=== PATIENT | female | born 1935 | race Caucasian/White ===

== ENCOUNTER 2022-01-30 10:53 | Outpatient (RCR) | payer MEDICARE, BC, SELFPAY ==
--- OUTSIDE RECORDS SUMMARY | 2022-01-18 14:42 | XMS_ITS | Continuity of Care Document ---
:1935 Author Care Team Providers Name Role Phone [facility] Primary Care Physician MD David Attending Physician Unavailable Allergies, Adverse Reactions, Alerts Allergen Type Severity Reaction Last Updated Verified Status Acetaminophen Allergy Mild rash, March Yes Active headache 2017 Indomethacin Allergy Mild headache, March Yes Active rash 2017 Morphine Allergy Moderate Chest pain March Yes Active 2017 Penicillin v Allergy Mild HIVES March Yes Active 2017 Propoxyphene Allergy Mild rash, March Yes Active headache 2017 Sulfa drugs Allergy Mild HIVES March Yes Active 2017 Social History Smoking Status Status Start Date End Date Date of Observat ion Ex-smoker (finding) October 17, 2021 3:53pm Observation Status Observation Response Date of Response History provided by Patient January 25, 2018 2:55p m Where do you live? Own home/apt January 25, 2018 2:55p m With whom do you live? Alone March 07, 2015 7:17pm Comment on who patient lives [employer] Jan 2:55pm with Additional Data Assigned Sex Female Problems Active Problems Medical Problem Onset Date Status Chest pain Active Temporal arteritis Active Right temporal headache Active Abdominal hernia Active Pyelonephritis Active RUQ abdominal wall herna Active Hypertension Active Obesity Active History of polycythemia vera Active Anemia Active Leukopenia Active Weakness Active Prerenal acute renal failure Active Hypotension Active Hypokalemia Active Medications Medication Status Dose Units Route Directions Qty Days Start End Ins tructions Date Date Acetaminophen Active 650 MG PO Every 4 100 NO MORE THAN (Tylenol) 325 Hours as 400 0 MG/DAY Mg TAB needed Acetaminophen Active 1-2 CAP PO Every 4 30 ON HOLD /Butalbital/C Hours as MAX 6/DAY affeine needed (Fioricet 50-325-40 Mg) CAP Aspirin Active 81 MG PO Daily Atorvastatin Active 40 MG PO Bedtime 90 Calcium Diphenhydrami Active 25 MG PO Every 6 ne Hcl Hours as (Benadryl) 25 needed Mg TAB Folic Acid Active 1 MG PO Daily 30 Furosemide Active 40 MG PO As Directed 30 (Lasix) 20 Mg TAB Hydroxyurea Active 500 MG PO As Directed 120 (Hydrea) 500 Mg CAP Lisinopril Active 20 MG PO Daily 24 November ON HOLD 2021 12:05pm Lorazepam Active 0.5 MG PO Three Times ON HOLD A Day as PRN needed Meclizine Hcl Active 12.5 MG PO Every 8 30 Hours as needed Metoprolol Active 25 MG PO Twice A Day 180 Tartrate Multivitamins Active 1 TAB PO Daily 100 (Multivitamin /Minerals) TAB Nitroglycerin Active 0.4 MG SL Every 5 25 PRN CHEST (Nitrostat) Minutes as HUONG N 0.4 Mg SUB needed Omeprazole Active 20 MG PO Daily@February (Prilosec) 20 , Mg CAP 2014 7:48am Ondansetron Active 4 MG PO Every October ON HO LD Hcl Hours as , (Ondansetron needed 2021 Odt) 4 Mg TAB 12:05pm Oxybutynin Active 5 MG PO Twice A Day 60 Chloride as needed Oxycodone Hcl Active 2.5 MG PO Every 4 30 Hours as needed Triamcinolone Active 1 SUZANNE TOP Twice A Day 15 Acetonide as needed (Triamcinolon e Acetonide (Cream)) 0.1 % CRE Vitamin E Active 800 UNIT PO Daily 100 ON HOLD Acetaminophen Discontin 1 TAB PO Every October /Hydrocodone ued Hours as , Bitart needed for 2021 (Hydrocodone- 12:05p Acetaminophen m ) 5 Mg/325 Mg TAB Acyclovir Discontin 400 MG PO Twice A Day October Instructed Man that no need for [place] to take anymore now ued , that counts ar e back up and patient isin't neutropenic 2021 2021 4:21pm 9:01am Acyclovir Discontin 400 MG PO Twice A Day October start 11/02/21 ued , , 2021 2021 11:51am 4:21pm Amlodipine Discontin 10 MG PO Daily 23 February Besylate ued , (Norvasc) 10 2019 Mg TAB 10:42a m Amlodipine Discontin 10 MG PO Daily January Besylate ued 2017 11:24a m Amlodipine Discontin 5 MG PO Daily January Besylate ued 2017 2:42pm Aspirin Discontin 325 MG PO Daily (Aspirin 325 ued y Mg) 325 Mg 2017 9:43am Aspirin Discontin 81 MG PO Daily October ued 2014 6:50pm Aspirin Discontin 325 MG PO Daily October (Aspirin 325 ued , Mg) 325 Mg 2014 TAB 4:45pm Butalbital-Ac Discontin 1 TAB PO Q4h Prn Juluar etaminophen-C ued y , aff2018 (Acetaminophe 11:38a n/Butalbital/ m ) TAB Cefadroxil Discontin 1 GM PO Twice A Day 14 January m ued 2017, 11:24am 2017 10:02a m Chlorphenir/H Discontin 5 ML PO Q12h Prn October ydrocodone ued , Polistirex 2014 (Tussionex) 8 4:44pm Mg/10 Mg SUSP Clopidogrel Discontin 75 MG PO Daily 24 November Bisulfate ued , (Plavix) 75 2021 Mg TAB 12:05p m Cyanocobalami Discontin 1000 CR OR Februa n (Vitamin ued ry B12) 1,000 Cr , TAB 2016 3:16pm Diclofenac Discontin 50 MG PO Twice A Day October Potassium ued , (Cataflam) 50 2014 Mg TAB 4:44pm Diclofenac Discontin 75 MG PO Twice A Day January Sodium ued 2015 1:08pm Diclofenac Discontin 75 MG PO Twice Daily t Sodium ued With Meals , as needed 2014 7:48am Fish Oil Discontin 1000 MG PO Daily 100 Juluar ued y 2018 11:38a m Fish Oil Discontin 1000 MG PO Daily October ued 2017 3:09pm Fluconazole Discontin 200 MG PO Daily October star t 11/02/21 ued , , 2021 2021 11:51am 9:25am Hydrocodone-A Discontin 1-2 TAB PO Every 4 20 Decembe November cetaminophen ued Hours as r , , (Lorcet 5-325 needed 2014 2015 Mg) 1 Tab TAB 11:25am 12:14p m Hydroxyurea Discontin 500 MG PO As Directed October ON HOLD (Hydrea) 500 ued , , Take 2 capsules Friday through Friday and one capsule Mg CAP 2021/. 12:05pm 9:04am Hydroxyurea Discontin 500 MG PO As Directed July Ap ril Take 2 capsules Friday through Friday and one capsule (Hydrea) 500 ued , /Friday. Mg CAP 2021 2021 1:56pm 12:05p m Hydroxyurea Discontin 1000 MG PO Every 48 Januar ALTERNATE (Hydrea) 500 ued Hours y WITH 50 0 MG Mg CAP 2021 1:56pm Hydroxyurea Discontin 500 MG PO Every 48 60 Decemb ued Hours er 2019 10:34a m Hydroxyurea Discontin 500 MG PO Daily December ued 2015 3:35pm Levofloxacin Discontin 250 MG PO Daily OctoberNovember 28 (Levaquin) ued , 4th, 250 Mg TAB 2021 2021 11:51am 9:01am Lidocaine Hcl Discontin 5 ML PO Every 4-6 Maria Eugenia (Lidocaine ued Hours as , Hcl needed 2017 (Viscous)) 2 11:24a % SOLN m Lidocaine Hcl Discontin 5 ML TOP Three Times 100 Au inez (Lidocaine ued A Day , Hcl 2014 (Viscous)) 2 7:05am % SOLN Lisinopril Discontin 20 MG PO Daily January ued , 2018 11:06am 12:05p m Lisinopril Discontin 40 MG PO Daily January ued 2017 11:24a m Lisinopril Discontin 20 MG PO Daily October ued 2014 4:44pm Meclizine Hcl Discontin 25 MG PO Three Times Ap ril ued A Day as , needed for 2014 6:50pm Meclizine Hcl Discontin 25 MG PO Daily October ued 2014 4:45pm Ondansetron Discontin 4 MG PO Every 6 30 Decembe October Hcl ued Hours as r , , (Ondansetron needed 2014 2021 Odt) 4 Mg TAB 11:25am 12:05p m Sumatriptan Discontin 25 MG PO As Needed Juluar ONE TAB AT ONSET OF HEADACHE, MAY REPEAT Q2H PRN, MAX 200 Succinate ued as needed y 9th, MG/24 HRS for 2019 Headache 11:38a m Relevant Diagnostic Tests and/or Laboratory Data Laboratory Results Test Date/Time Result Interpretation Reference Result Comment Performing Range Site White Blood December 26, 12.09 5.00-10.00 [facility] Lab Count [address] [facility] 11:18am [place] [address] Red Blood December 26, 3.80 3.90-5.03 [facility] Count [address] [facility] 11:18am [place] [address] Hemoglobin December 26, 13.8 12.0-15.5 [facility] [address] [facility] 11:18am [place] [address] Hematocrit December 26, 42.8 34.9-44.5 [facility] [address] [facility] 11:18am [place] [address] Mean December 26, 113 82-98 [facility] Corpuscular 2021 [address] [facility] Volume 11:18am [place] [address] Mean December 26, 36 27-34 [facility] Corpuscular 2021 [address] [facility] Hemoglobin 11:18am [facility] [place] [address] Mean December 26, 32 32-36 [facility] Corpuscular 2021 [address] [facility] Hemoglobin 11:18am [facility] [place] [address] Concent Platelet December 26, 435 150-450 [facility] Count [address] [facility] 11:18am [place] [address] RDW December 26, 18.2 11.5-15.3 [facility] Coefficient 2021 [address] [facility] of Variation 11:18am [place] [address] Neutrophils December 26, 84.9 50.0-70.0 [facility] (%) (Auto) 2021 [address] [facility] 11:18am [place] [address] Lymphocytes December 26, 10.2 25.0-45.0 [facility] (%) (Auto) 2021 [address] [facility] 11:18am [place] [address] Monocytes (%) December 26, 2.2 0.00-11.0 [facility] Lab (Auto) [address] [facility] 11:18am [place] [address] Eosinophils December 26, 1.3 0.0-7.0 [facility] (%) (Auto) 2021 [address] [facility] 11:18am [place] [address] Basophils (%) December 26, 0.8 0.0-3.0 [facility] (Auto) [address] [facility] 11:18am [place] [address] Immature December 26, 0.6 [facility] Granulocyte % 2021 1999 [facility] (Auto) 11:18am [facility] [address] RDW April 14.8 11.5-15.3 [facility] Coefficient [address] [facility] [address] of Variation 9:50am [facility] [address] Neutrophils # December 26, 10.26 1.70-7.00 [facility] (Auto) [address] [facility] 11:18am [facility] [address] Lymphocytes # December 26, 1.23 0.90-2.90 [facility] (Auto) [address] [facility] 11:18am [facility] [address] Monocytes # December 26, 0.27 0.30-0.90 [facility] (Auto) [address] [facility] 11:18am [facility] [address] Eosinophils # December 26, 0.16 0.00-0.50 [facility] (Auto) [address] [facility] 11:18am [facility] [address] Basophils # December 26, 0.10 0.00-0.20 [facility] (Auto) [address] [facility] 11:18am [facility] [address] Immature December 26, 0.07 [facility] Granulocyte # 2021 [address] [facility] (Auto) 11:18am [facility] [address] Prothromb December 26, 1.12 0.91-1.10 [facility] Time [address] [facility] 11:18am [place] [address] Ratio Activated December 26, 44 23-33 [facility] Partial [address] [facility] Thromboplast 11:18am [facility] [address] Time Random October 60-115 [facility] Glucose 2021 [facility] 10:21am [facility] [address] Blood Urea October 14 7-30 [facility] Nitrogen 2021 [facility] 10:21am [facility] [address] Creatinine Erma 0.5 0.5-1.5 [facility] 2021 [facility] 10:21am [place] [address] Estimated Erma Patient [facility] Creatinine 2021 height/weight [address] [facility] Clearance 10:21am [place] [address] available Sodium Level October 138 135-149 [facility] 2021 [facility] 10:21am [facility] [address] Potassium Erma 4.0 3.6-5.1 [facility] Level 2021 [facility] 10:21am [facility] [address] Chloride October 104 96-114 [facility] Level 2021 [facility] 10:21am [facility] [address] Carbon November 20-32 [facility] Dioxide Level [address] [facility] 10:21am [place] [address] Calcium Level October 8.9 8.4-10.6 [facility] 2021 [facility] 10:21am [facility] [address] Total Protein October 6.9 6.0-8.3 The use of [facility] Lab 2021 Eltrombopag, a [address] [facility] 10:21am bone marrow [facility] [address] stimulant used to treat thrombocytopenia and aplastic anemia, interferes with this measurement of total protein. A 5% bias has been observed. Albumin Erma 3.9 3.3-5.0 [facility] 2021 [facility] 10:21am [facility] [address] Total Erma 0.6 0.1-1.5 [facility] Bilirubin 2021 [facility] 10:21am [facility] [address] Aspartate October 37 12-35 [facility] Amino Transf 2021 [facility] (AST/SGOT) 10:21am [facility] [address] Alanine October 15 4-35 [facility] Aminotransfer 2021 [facility] ase 10:21am [facility] [address] (ALT/SGPT) Alkaline October 89 40-150 [facility] Phosphatase [address] [facility] [address] 10:21am [facility] [address] Lactate December 26 313-618 [facility] Dehydrogenase 2021 [address] [facility] 11:18am [facility] [address] Tumor Marker December 26 0-9 INTERPRETIVE HEROZ Alpha 2021 INFORMATION: [address] [facility] Fetoprotein 11:18am Alpha [facility] [address] Fetoprotein Tumor MarkerThe Morales Ezio Access DxI AFP method is used. Resultsobtained with different assay methods or kits cannot be usedinterchangea edi. AFP is a valuable aid in the management ofnonseminomatou s testicular cancer patients when used inconjunction with information available from the clinicalevaluati on and other diagnostic procedures. Increased AFPconcentration s have also been observed in ataxia telangiectasia,h ereditary tyrosinemia, primary hepatocellular carcinoma,terato carcinoma, gastrointestinal tract cancers with and withoutliver metastases, and in benign hepatic conditions such as acuteviral hepatitis, chronic active hepatitis, and cirrhosis. Theresult cannot be interpreted as absolute evidence of thepresence or absence of malignant disease. The result is notinterpretable as a tumor marker in females.Access complete set of age- and/or gender-specific referenceinterva ls for this test in the [facility] Test Directory(KARALIT).Performed By: [employer] [place] [id number] Director: Goldie Salazar MD Therapeutic July cc 250 CC [facility] Phlebotomy 2021 REMOVED REMOVED(NOT 200) [address] [facility] 10:10am BUT NOT AN [facility] [address] OPTION TO SELECT FOR RESULTS Advance Directives Advance Directive Response Recorded Date/Time Does Pt have Health Care No August 17 10:58am Directive? Has patient completed a Yes October 17, 2021 3:18pm Health Care Directive? Insurance Providers Guarantor Braulio Gardner Address [address] [address] [address] Contact Info. Home Phone: MAN Payer Policy Id Coverage Id Subscriber's Subscriber Id Effective E xpiration Name Date Date Medicare [id number] Braulio Gardner [address] [place] [id number] Braulio Gardner [id number] Encounters Encounter Location(s) Arrival/Admit Date Discharge/Depart Date Provider(s) Registered [place] December 26, 2021 David, Jasmi [facility] 7:01am Plan of Treatment Future Tests Future scheduled test information is unavailable Pending Tests Pending diagnostic test information is unavailable Future Visits Future appointment information is unavailable Referrals to Other Providers Reason for Referral Start Provider Provider Contact Provider Address Referral Date Information Bharti, Oma Phone: [address] [facility] [address] Future Procedures Future procedure information is unavailable Future Medications Future medication information is unavailable Patient Instructions Cefadroxil (By mouth) Kidney Infection (AC) Abdominal Binder (DC)
[2022-01-30 11:18] VITALS: BP 97/60
[2022-01-30 11:19] VITALS: BP 105/57
--- NOTE | 2022-01-30 11:19 | PC.NURSE ---
Order to check BP and Potassium during patients lab appointment today. Larm BP was 97/60, Rarm BP was 105/57. Patient stated that she has been running in the 190's at home and that her PCP is adjusting medications. Patient stated that she always feels dizzy and light headed. Encouraged patient to follow up with PCP or go to the ER if patient continues to be dizzy/light headed or unresponsive. Patient and her healthcare science specialist verbally understood and agreed to this plan.
[2022-01-30 11:22] LABS: Basophils Percent Auto 0.8 % (0.0-3.0); Eosinophils Percent Auto 1.5 % (0.0-7.0); Hematocrit 44.8 % (33.0-51.0); Hemoglobin* 14.9 gm/dL (12.0-16.0); Immature Granulocytes Abs Auto 0.08 K/uL (0.00-0.30); Lymphocytes Percent Auto 10.8 % (20-44); Mean Corpuscular HGB Conc 33 gm/dL (32-36); Mean Corpuscular Hemoglobin 37 pg (26-34); Mean Corpuscular Volume 111 fL (80-100); Monocytes Percent Auto 1.3 % (0.0-11.0); Neutrophils Percent Auto 85.1 % (42.0-72.0); Platelet Count* 476 K/uL (140-440); RDW Coefficient of Variation % 16.9 % (11.5-15.5); Red Blood Count 4.04 m/uL (4.00-5.20)
[2022-01-30 11:37] LABS: Albumin* 4.3 g/dL (3.3-5.0); Chloride* 103 mmol/L (96-114)
[2022-01-30 11:38] LABS: Potassium* 3.6 mmol/L (3.6-5.1); Sodium* 136 mmol/L (135-149)
[2022-01-30 11:40] LABS: Alanine Aminotransferase* 20 U/L (4-35); Alkaline Phosphatase* 85 U/L (40-150); Aspartate Amino Transferase* 27 U/L (12-35); Bilirubin Total* 0.7 mg/dL (0.1-1.5); Blood Urea Nitrogen* 29 mg/dL (7-30); Carbon Dioxide* 23 mmol/L (20-32); Creatinine* 0.8 mg/dL (0.5-1.5); Estimated Glomerular Filt Rate 72.61; Glucose* 111 mg/dL (60-115); Lactate Dehydrogenase* 745 U/L (313-618)
[2022-01-30 11:41] LABS: Calcium* 9.1 mg/dL (8.4-10.6)
[2022-01-30 11:51] LABS: Slide Review Reflex Yes
[2022-01-30 11:52] LABS: Slide Review Acceptable Review (Acceptable)
--- NOTE | 2022-01-30 12:16 | PC.NURSE ---
Faxed Potassium and BP results to Dr. Hansa Hogan.
== END 2022-02-24 23:59 | disposition home or self-care (01) ==
LOC: CCIC 10:53
PROVIDERS: PCP Family Medicine; Visit Provider Internal Medicine Hematology & Oncology
DX: C94.6 Myelodysplastic disease, not elsewhere classified (principal); D45 Polycythemia vera
CPT/HCPCS: 36415; 80053; 83615; 85025; 99211

== ENCOUNTER 2022-06-26 10:00 | Outpatient (RCR) | payer MEDICARE, BC, SELFPAY ==
[2022-03-27 14:12] LABS: Basophils Absolute Auto 0.07 K/uL (0.00-0.30); Basophils Percent Auto 0.7 % (0.0-3.0); Eosinophils Absolute Auto 0.19 K/uL (0.00-0.50); Hematocrit 41.6 % (33.0-51.0); Hemoglobin* 13.6 gm/dL (12.0-16.0); Immature Granulocytes Abs Auto 0.04 K/uL (0.00-0.30); Lymphocytes Percent Auto 14.7 % (20-44); Mean Corpuscular HGB Conc 33 gm/dL (32-36); Mean Corpuscular Hemoglobin 40 pg (26-34); Mean Corpuscular Volume 122 fL (80-100); Neutrophils Percent Auto 79.2 % (42.0-72.0); Platelet Count* 290 K/uL (140-440); RDW Coefficient of Variation % 17.3 % (11.5-15.5); Red Blood Count 3.42 m/uL (4.00-5.20); White Blood Count* 9.64 K/uL (4.50-11.00)
[2022-03-27 14:14] LABS: Slide Review Reflex No
[2022-03-27 17:25] LABS: Chloride* 103 mmol/L (96-114)
[2022-03-27 17:26] LABS: Albumin* 4.2 g/dL (3.3-5.0); Potassium* 4.5 mmol/L (3.6-5.1); Sodium* 139 mmol/L (135-149)
[2022-03-27 17:28] LABS: Carbon Dioxide* 26 mmol/L (20-32); Creatinine* 0.9 mg/dL (0.5-1.5); Estimated Glomerular Filt Rate 63 ml/min
[2022-03-27 17:29] LABS: Alanine Aminotransferase* 23 U/L (4-35); Alkaline Phosphatase* 87 U/L (40-150); Aspartate Amino Transferase* 35 U/L (12-35); Bilirubin Total* 0.8 mg/dL (0.1-1.5); Blood Urea Nitrogen* 35 mg/dL (7-30); Glucose* 126 mg/dL (60-115); Total Protein* 7.1 g/dL (6.0-8.3)
[2022-06-26 09:48] LABS: Basophils Absolute Auto 0.04 K/uL (0.00-0.30); Basophils Percent Auto 0.6 % (0.0-3.0); Eosinophils Absolute Auto 0.04 K/uL (0.00-0.50); Eosinophils Percent Auto 0.6 % (0.0-7.0); Hematocrit 36.6 % (33.0-51.0); Hemoglobin* 12.3 gm/dL (12.0-16.0); Immature Granulocytes Abs Auto 0.02 K/uL (0.00-0.30); Immature Granulocytes Pct Auto 0.3 %; Lymphocytes Absolute Auto 1.38 K/uL (0.90-2.90); Lymphocytes Percent Auto 21.2 % (20-44); Mean Corpuscular HGB Conc 34 gm/dL (32-36); Mean Corpuscular Hemoglobin 41 pg (26-34); Mean Corpuscular Volume 121 fL (80-100); Monocytes Percent Auto 1.1 % (0.0-11.0); Neutrophils Percent Auto 76.2 % (42.0-72.0); Platelet Count* 264 K/uL (140-440); RDW Coefficient of Variation % 16.1 % (11.5-15.5); Red Blood Count 3.03 m/uL (4.00-5.20)
[2022-06-26 09:52] LABS: Slide Review Reflex No
[2022-06-26 10:00] VITALS: BP 61/41; PULSE 73; TEMP 36.7; O2SAT 98
[2022-06-26 10:02] LABS: Albumin* 4.4 g/dL (3.3-5.0); Chloride* 94 mmol/L (96-114)
[2022-06-26 10:03] LABS: Potassium* 3.8 mmol/L (3.6-5.1); Sodium* 132 mmol/L (135-149)
[2022-06-26 10:05] LABS: Aspartate Amino Transferase* 23 U/L (12-35); Bilirubin Total* 1.5 mg/dL (0.1-1.5); Carbon Dioxide* 30 mmol/L (20-32); Estimated Glomerular Filt Rate 56 ml/min; Total Protein* 7.2 g/dL (6.0-8.3)
[2022-06-26 10:06] LABS: Alanine Aminotransferase* 16 U/L (4-35); Alkaline Phosphatase* 89 U/L (40-150); Blood Urea Nitrogen* 32 mg/dL (7-30); Calcium* 9.4 mg/dL (8.4-10.6); Glucose* 96 mg/dL (60-115); Lactate Dehydrogenase* 287 U/L (120-246)
--- NOTE | 2022-06-26 10:29 | ONC.NURNOTE ---
Saskia arrives per wheelchair with her grandson for routine lab monitoring every 3 months grandson and patient reported recent concerns with low blood pressure continues on antihypertensive meds BP noted and [facility] staff recommended she be evaluated in the ED discussed safety concerns with 60/40 BP patient agreeable to go to ED Labs noted- Saskia has an appt with PCP next week Man states they have been holding some of the antihypertensive meds, but patient took her metoprolol this am report called to the ED
--- NOTE | 2022-08-20 15:42 | ONC.NURNOTE ---
Called pt to review changes in [facility] program and Dr. Hernandez's transition to [facility], returning to [facility] ~ Spring 2022. Pt has been staying with a different son, Virgil, and had not received our letters. Pt was to C 06/2023 but had not returned phone calls. Pt would like to continue care at [facility] however does not have her calendar available for scheduling. She will call us to schedule/Nsg to call to schedule in the coming weeks to f/u with next available Med Onc.
--- NOTE | 2022-09-11 12:27 | ONC.NURNOTE ---
Unable to reach Saskia on her home phone (busy tone over past week), messages left w/Man have not been returned Blue missed appt card sent to Saskia at her listed home address
== END 2022-09-23 23:59 | disposition home or self-care (01) ==
LOC: CCIC 10:00
PROVIDERS: PCP Family Medicine; Visit Provider Internal Medicine Hematology & Oncology
DX: D45 Polycythemia vera (principal); E04.1 Nontoxic single thyroid nodule
CPT/HCPCS: 36415; 80053; 83615; 85025; 99212; 99213; 99214

== ENCOUNTER 2022-06-26 10:37 | Emergency (ER) | payer MEDICARE, SELFPAY ==
[2022-06-26] VITALS (29 sets, daily range): BP systolic 78–109; BP diastolic 42–65; PULSE 64–72; RESP 10–17; TEMP 36.1; O2SAT 97–100; BMI 22.9
[2022-06-26] MEDS: 0.9 % SODIUM CHLORIDE 1000 ml 1,000 ML 6000 ML IV (11:20)
--- NOTE | 2022-06-26 12:10 | CRLHL7_ITS ---
For Patients: As a result of the Century Cures Act, medical imaging exams and procedure reports are released immediately into your electronic medical record. You may view this report before your referring provider. If you have questions, please contact your health care provider. INDICATION: Week TECHNIQUE: Chest 1 views. COMPARISON: Chest x-ray October 17, 2021 FINDINGS: Cardiovascular and mediastinum: Left chest wall dual chamber pacemaker leads in unchanged position. Heart size and vasculature are normal in caliber and appearance. Lungs and pleural spaces: Hazy opacity at the right lung base may represent atelectasis or developing pneumonia. No sign of pleural effusion. No pneumothorax. Bones and soft tissues: No significant findings. IMPRESSION: Hazy opacity at the right lung base may represent atelectasis or developing pneumonia. Dictated by Lewis Hunt MD @ 06/26/2022 1:03:53 PM (Electronically Signed)
--- NOTE | 2022-06-26 12:17 | ED_ITS ---
HPI - General Adult General Time Seen by Provider: 12:17 Date Seen: 06/26/22 Chief complaint: Hypotension Stated complaint: From [facility] Time Seen by Provider: 06/26/22 11:52 Source: patient Mode of arrival: wheelchair Limitations: physical limitation History of Present Illness HPI narrative: Patient is an 86 year white female who [facility] with low blood pressure. She has history of polycythemia. She has been treated for this with blood draws. She is also on Hydrea. She lives with her grandson Man. She was noted to be hypotensive in the [facility] today and was sent to the ER. She really has no complaints no chest pain, no fevers, no chills, no dysuria frequency she does state that she does have occasional urinary incontinence. She has no sore throat, no COVID symptoms. She states emphatically she will not get a nasal swab for COVID/RSV/influenza. She does not believe she has had a fever. Related Data Home Medications Medication Instructions Recorded Confirmed acetaminophen 325 mg tablet 650 mg PO Q4H PRN 01/30/22 03/27/22 aspirin 81 mg tablet,delayed 81 mg PO DAILY 01/30/22 03/27/22 release atorvastatin 40 mg tablet 40 mg PO HS 01/30/22 03/27/22 npraxoewui-ppwqogezjggvw-mmchnbuy 1 tab PO Q4H PRN 01/30/22 03/27/22 50 mg-325 mg-40 mg tablet diphenhydramine HCl 25 mg capsule 25 mg PO Q6H PRN 01/30/22 03/27/22 (Benadryl) folic acid 1 mg tablet 1 mg PO DAILY 01/30/22 03/27/22 furosemide 40 mg tablet 40 mg PO DIRECTED 01/30/22 03/27/22 hydroxyurea 500 mg capsule 500 mg PO DIRECTED 01/30/22 03/27/22 lisinopril 10 mg tablet 20 mg PO DAILY 01/30/22 03/27/22 lorazepam 0.5 mg tablet 0.5 mg PO TID PRN 01/30/22 03/27/22 meclizine 12.5 mg tablet 12.5 mg PO .Q8 PRN 01/30/22 03/27/22 metoprolol tartrate 25 mg tablet 25 mg PO Q12H 01/30/22 03/27/22 multivitamin 1 tab PO DAILY 01/30/22 03/27/22 nitroglycerin 0.4 mg sublingual 0.4 mg sublingual Q5-15M PRN 01/30/22 03/27/22 tablet omeprazole 20 mg capsule,delayed 20 mg PO DAILY 01/30/22 03/27/22 release ondansetron 4 mg disintegrating 4 mg PO Q6H PRN 01/30/22 03/27/22 tablet oxybutynin chloride 5 mg tablet 5 mg PO Q12H PRN 01/30/22 03/27/22 oxycodone 5 mg tablet 2.5 mg PO Q4H PRN 01/30/22 03/27/22 Previous Rx's Medication Instructions Recorded azithromycin 500 mg tablet 500 mg PO DAILY 7 days #7 tabs 06/26/22 (Zithromax) Allergies Allergy/AdvReac Type Severity Reaction Status Date / Time morphine Allergy Severe Chest Pain Verified 01/30/22 07:02 penicillin V Allergy Severe Hives Verified 01/30/22 07:02 indomethacin Allergy Mild Rash Verified 01/30/22 07:02 propoxyphene Allergy Mild Rash Verified 01/30/22 07:02 Sulfa drugs Allergy Severe Hives Uncoded 01/30/22 07:02 Review of Systems Status of ROS: Reports: 6 or more systems reviewed and unremarkable except as noted in History and below [facility] Medical History Abdominal hernia Acute prerenal failure Anemia Chest pain Hypokalemia Hypotension Leukopenia Pyelonephritis Right sided temporal headache Temporal arteritis Weakness Social History Smoking Status: Former smoker How often do you have a drink containing alcohol: never How often do you have six or more drinks on one occasion: Never AUDIT-C Alcohol total score: 0 Non-prescribed substance use: denies use Exam Narrative: Exam Narrative: Objective: Patient is alert orient x3 very pleasant HEENT shows dry mucous membranes in the mouth Neck is supple Lungs clear Heart rhythm regular 2/6 systolic murmur Abdomen benign soft nontender Extremities are no edema neurologic nonfocal Periphery warm and dry Skin no rashes Const: Vital Signs, click to edit/add: Vital Signs - 24 hr 06/26/22 10:52 11/30/22 10:52 06/26/22 11:05 Temperature 96.9 F L Pulse Rate Pulse Rate [Right Pulse Oximeter] 68 65 Respiratory Rate 17 Blood Pressure Blood Pressure [Le ft Upper Arm] 78/44 L 78/44 L Pulse Oximetry 99 Oxygen Delivery Me thod Room Air 06/26/22 12:00 06/26/22 11:05 06/26/22 11:15 Temperature Pulse Rate Pulse Rate [Right Pulse Oximeter] 67 69 Respiratory Rate 13 10 L Blood Pressure Blood Pressure [Le ft Upper Arm] 89/65 L 92/53 L 88/52 L Pulse Oximetry 97 Oxygen Delivery Me thod Room Air Room Air 06/26/22 11:30 06/26/22 11:45 06/26/22 11:50 Temperature Pulse Rate 65 Pulse Rate [Right Pulse Oximeter] 64 64 Respiratory Rate 15 17 Blood Pressure 87/46 L Blood Pressure [Le ft Upper Arm] 84/43 L 87/46 L Pulse Oximetry 100 99 98 Oxygen Delivery Me thod Room Air Room Air 06/26/22 12:15 06/26/22 12:19 06/26/22 12:20 Temperature Pulse Rate 71 70 68 Pulse Rate [Right Pulse Oximeter] Respiratory Rate Blood Pressure Blood Pressure [Le ft Upper Arm] Pulse Oximetry 100 100 99 Oxygen Delivery Me thod 06/26/22 12:30 06/26/22 12:31 06/26/22 12:45 Temperature Pulse Rate 64 65 66 Pulse Rate [Right Pulse Oximeter] Respiratory Rate Blood Pressure 99/59 L Blood Pressure [Le ft Upper Arm] Pulse Oximetry 100 97 98 Oxygen Delivery Me thod 06/26/22 12:46 Temperature Pulse Rate 66 Pulse Rate [Right Pulse Oximeter] Respiratory Rate Blood Pressure 100/50 L Blood Pressure [Le ft Upper Arm] Pulse Oximetry 97 Oxygen Delivery Me thod Course Vital Signs Vital signs: Initial Vital Signs Temperature 96.9 F L 06/26/22 10:52 Temperature Source Temporal Artery Scan 06/26/22 10:52 Pulse Rate 68 06/26/22 10:52 Respiratory Rate 17 06/26/22 10:52 Blood Pressure 78/44 L 06/26/22 10:52 Blood Pressure Mean 55 06/26/22 10:52 Blood Pressure Position Supine 06/26/22 10:52 Oxygen Delivery Method 06/26/22 10:52 Vital Signs Temperature 96.9 F L 06/26/22 10:52 Pulse Rate 68 06/26/22 10:52 Respiratory Rate 17 06/26/22 10:52 Blood Pressure 78/44 L 06/26/22 10:52 Oxygen Delivery Method 06/26/22 10:52 Temperature 96.9 F L 06/26/22 10:52 Pulse Rate 68 06/26/22 14:30 Respiratory Rate 17 06/26/22 11:45 Blood Pressure 92/43 L 06/26/22 14:17 Pulse Oximetry 97 06/26/22 14:30 Oxygen Delivery Method 06/26/22 11:45 Medical Decision Making MDM Narrative Medical decision making narrative: Patient is a very pleasant 86-year-old female with poly safety [place], who has a hypotensive episode. She has a EKG that shows a paced rhythm by my read with wide complex white complex a QRS. Will check some electrolytes, hydrate with normal saline, check a CBC. Check a troponin and a the EKG as mention. Will also get a chest x-ray. Again the patient declines any viral testing. Addendum: The patient's chest x-ray shows by my read a questionable opacity in the right lower lung could be pneumonia, the patient be given IV Rocephin and Zithromax orally. Her blood pressure is improved nicely. I think she was simply dehydrated in combination with perhaps having mild pneumonia. She declines to have any viral testing. She is not hypoxic and I think she can continue her same medications at home and proceed home. She has very competent and helpful care at home with her grandson Man. Update regular doctor next 2 days, return to ED sooner problems or concerns Lab Data Labs: Lab Results 06/26/22 06/26/22 06/26/22 Range/Units 11:05 11:05 11:05 WBC 6.12 (4.50-11.00) K/uL RBC 2.77 L (4.00-5.20) m/uL Hgb 11.4 L (12.0-16.0) gm/dL Hct 33.5 (33.0-51.0) % MCV 121 H (80-100) fL MCH 41 H (26-34) pg MCHC 34 (32-36) gm/dL RDW Coeff of Amber 16.2 H (11.5-15.5) % Plt Count 228 (140-440) K/uL Neut % (Auto) 75.9 H (42.0-72.0) % Lymph % (Auto) 20.3 (20-44) % [place] % (Auto) 2.0 (0.0-11.0) % Eos % (Auto) 0.8 (0.0-7.0) % Baso % (Auto) 0.7 (0.0-3.0) % Neut # (Auto) 4.60 (1.7-7.0) K/uL Lymph # (Auto) 1.24 (0.90-2.90) K/uL [place] # (Auto) 0.10 (0.00-0.90) K/UL Eos # (Auto) 0.05 (0.00-0.50) K/uL Baso # (Auto) 0.04 (0.00-0.30) K/uL Abs Immat Gran (auto) 0.02 (0.00-0.30) K/uL Imm/Tot Granulo (auto) 0.3 % Sodium 132 L (135-149) mmol/L Potassium 3.2 L (3.6-5.1) mmol/L Chloride 94 L (96-114) mmol/L Carbon Dioxide 31 (20-32) mmol/L BUN 33 H (7-30) mg/dL Creatinine 1.0 (0.5-1.5) mg/dL Estimated Creat Clear 33.12 Estimated GFR 56 ml/min Glucose 89 (60-115) mg/dL Calcium 8.9 (8.4-10.6) mg/dL Total Bilirubin 1.4 (0.1-1.5) mg/dL Direct Bilirubin 0.0 (0.0-0.5) mg/dL AST 23 (12-35) U/L ALT 15 (4-35) U/L Alkaline Phosphatase 87 (40-150) U/L Troponin I < 0.01 L (0.01-0.04) ng/mL Total Protein 6.4 (6.0-8.3) g/dL Albumin 3.8 (3.3-5.0) g/dL Urine Color (Yellow) Urine Appearance (Clear) Urine pH (5.0-8.5) Ur Specific [place] (1.000-1.030) Urine Protein (Negative) Urine Glucose (UA) (Negative) Urine Ketones (Negative) Urine Blood (Negative) Urine Nitrite (Negative) Urine Bilirubin (Negative) Urine Urobilinogen (0.2-1.0) Ur Leukocyte Esterase (Negative) Urine RBC (0-2) Urine WBC (0-5) Ur Squamous Epith Cells (None-Few) Amorphous Sediment (None) Urine Bacteria (None) 06/26/22 Range/Units 12:54 WBC (4.50-11.00) K/uL RBC (4.00-5.20) m/uL Hgb (12.0-16.0) gm/dL Hct (33.0-51.0) % MCV (80-100) fL MCH (26-34) pg MCHC (32-36) gm/dL RDW Coeff of Amber (11.5-15.5) % Plt Count (140-440) K/uL Neut % (Auto) (42.0-72.0) % Lymph % (Auto) (20-44) % [place] % (Auto) (0.0-11.0) % Eos % (Auto) (0.0-7.0) % Baso % (Auto) (0.0-3.0) % Neut # (Auto) (1.7-7.0) K/uL Lymph # (Auto) (0.90-2.90) K/uL [place] # (Auto) (0.00-0.90) K/UL Eos # (Auto) (0.00-0.50) K/uL Baso # (Auto) (0.00-0.30) K/uL Abs Immat Gran (auto) (0.00-0.30) K/uL Imm/Tot Granulo (auto) % Sodium (135-149) mmol/L Potassium (3.6-5.1) mmol/L Chloride (96-114) mmol/L Carbon Dioxide (20-32) mmol/L BUN (7-30) mg/dL Creatinine (0.5-1.5) mg/dL Estimated Creat Clear Estimated GFR ml/min Glucose (60-115) mg/dL Calcium (8.4-10.6) mg/dL Total Bilirubin (0.1-1.5) mg/dL Direct Bilirubin (0.0-0.5) mg/dL AST (12-35) U/L ALT (4-35) U/L Alkaline Phosphatase (40-150) U/L Troponin I (0.01-0.04) ng/mL Total Protein (6.0-8.3) g/dL Albumin (3.3-5.0) g/dL Urine Color Yellow (Yellow) Urine Appearance Slightly Cloudy A (Clear) Urine pH 5.5 (5.0-8.5) Ur Specific [place] 1.010 (1.000-1.030) Urine Protein Negative (Negative) Urine Glucose (UA) Negative (Negative) Urine Ketones Negative (Negative) Urine Blood Trace-intact A (Negative) Urine Nitrite Negative (Negative) Urine Bilirubin Negative (Negative) Urine Urobilinogen 0.2 (0.2-1.0) Ur Leukocyte Esterase 3+ A (Negative) Urine RBC 0-2 (0-2) Urine WBC 10-25 A (0-5) Ur Squamous Epith Cells Moderate A (None-Few) Amorphous Sediment Moderate A (None) Urine Bacteria Moderate A (None) Discharge Plan Discharge Clinical Impression: Hypotensive episode, Dehydration, Pneumonia Patient Disposition: Home w/ Parent or Adult Condition: Stable Additional Instructions: Rest, fluids, Zithromax at home, update primary care in the next day or 2, return to ED as needed. Activity Level: Light activity Discharge Diet: Regular Prescriptions: New azithromycin [Zithromax] 500 mg tablet 500 mg PO DAILY 7 Days Qty: 7 0RF No Action acetaminophen 325 mg tablet 650 mg PO Q4H PRN aspirin 81 mg tablet,delayed release (DR/EC) 81 mg PO DAILY atorvastatin 40 mg tablet 40 mg PO HS Label Comments: TAKE 1 TABLET BY MOUTH EVERY DAY qsttltormf-bjiuoaqhzvlpy-ztuf 50-325-40 mg tablet 1 tab PO Q4H PRN Hold Instructions: unknown Label Comments: TAKE 1 TABLET BY MOUTH EVERY 4 HOURS IF NEEDED. FOR HEADACHE Rx Instructions: on hold diphenhydramine HCl [Benadryl] 25 mg capsule 25 mg PO Q6H PRN folic acid 1 mg tablet 1 mg PO DAILY furosemide 40 mg tablet 40 mg PO DIRECTED Rx Instructions: take 2- 20 mg tablets as directed by your provider hydroxyurea 500 mg capsule 500 mg PO DIRECTED Label Comments: TAKE 2 CAPSULES FRIDAY THROUGH FRIDAY AND ONE CAPSULE FRIDAY/FRIDAY. lisinopril 10 mg tablet 20 mg PO DAILY Hold Instructions: unknown Label Comments: TAKE 1 TABLET BY MOUTH EVERY DAY Rx Instructions: on hold lorazepam 0.5 mg tablet 0.5 mg PO TID PRN Rx Instructions: on hold meclizine 12.5 mg tablet 12.5 mg PO .Q8 PRN metoprolol tartrate 25 mg tablet 25 mg PO Q12H multivitamin Tablet 1 tab PO DAILY nitroglycerin 0.4 mg tablet, sublingual 0.4 mg sublingual Q5-15M PRN Rx Instructions: do not exceed 3 doses per episode omeprazole 20 mg capsule,delayed release(DR/EC) 20 mg PO DAILY ondansetron 4 mg tablet,disintegrating 4 mg PO Q6H PRN oxybutynin chloride 5 mg tablet 5 mg PO Q12H PRN Label Comments: TAKE 2 TABLETS IN THE MORNING AND 1 TABLET IN THE EVENING oxycodone 5 mg tablet 2.5 mg PO Q4H PRN Label Comments: TAKE 1/2 TABLET (2.5 MG) BY MOUTH EVERY 8 HOURS IF NEEDED FOR PAIN (FOR MODERATE TO SEVERE PAIN.). Follow Up/Referrals: Hansa Hogan DO [Primary Care Provider] - Stand Alone Forms: [facility] Info Instructions
[2022-06-26 12:24] LABS: Albumin* 3.8 g/dL (3.3-5.0); Chloride* 94 mmol/L (96-114); Sodium* 132 mmol/L (135-149)
[2022-06-26 12:25] LABS: Potassium* 3.2 mmol/L (3.6-5.1)
[2022-06-26 12:26] LABS: Basophils Absolute Auto 0.04 K/uL (0.00-0.30); Basophils Percent Auto 0.7 % (0.0-3.0); Eosinophils Absolute Auto 0.05 K/uL (0.00-0.50); Eosinophils Percent Auto 0.8 % (0.0-7.0); Hematocrit 33.5 % (33.0-51.0); Hemoglobin* 11.4 gm/dL (12.0-16.0); Immature Granulocytes Abs Auto 0.02 K/uL (0.00-0.30); Immature Granulocytes Pct Auto 0.3 %; Lymphocytes Absolute Auto 1.24 K/uL (0.90-2.90); Lymphocytes Percent Auto 20.3 % (20-44); Mean Corpuscular HGB Conc 34 gm/dL (32-36); Mean Corpuscular Hemoglobin 41 pg (26-34); Mean Corpuscular Volume 121 fL (80-100); Neutrophils Percent Auto 75.9 % (42.0-72.0); Platelet Count* 228 K/uL (140-440); RDW Coefficient of Variation % 16.2 % (11.5-15.5); Red Blood Count 2.77 m/uL (4.00-5.20); White Blood Count* 6.12 K/uL (4.50-11.00)
[2022-06-26 12:27] LABS: Alanine Aminotransferase* 15 U/L (4-35); Alkaline Phosphatase* 87 U/L (40-150); Aspartate Amino Transferase* 23 U/L (12-35); Bilirubin Total* 1.4 mg/dL (0.1-1.5); Blood Urea Nitrogen* 33 mg/dL (7-30); Carbon Dioxide* 31 mmol/L (20-32); Est. Creatinine Clearance* 33.12; Estimated Glomerular Filt Rate 56 ml/min; Glucose* 89 mg/dL (60-115); Total Protein* 6.4 g/dL (6.0-8.3)
[2022-06-26 12:28] LABS: Calcium* 8.9 mg/dL (8.4-10.6)
[2022-06-26 12:33] LABS: Slide Review Reflex No
[2022-06-26 12:45] LABS: Troponin I* < 0.01 ng/mL (0.01-0.04)
[2022-06-26] MEDS: AZITHROMYCIN 250 MG TABLET 500 MG PO (13:49)
[2022-06-26] MEDS: cefTRIAXone 1 GM in 0.9 % SODIUM CHLORIDE Mini-bag 100 ML IVPB (13:49)
[2022-06-26 13:52] LABS: Color Urine Yellow (Yellow)
[2022-06-26 13:53] LABS: Appearance Urine Slightly Cloudy (Clear); Bilirubin Urine Negative (Negative); Blood Urine Trace-intact (Negative); Glucose Urine Negative (Negative); Ketones Urine Negative (Negative); Leukocyte Esterase Urine 3+ (Negative); Nitrite Urine Negative (Negative); Protein Urine Negative (Negative); RBC Urine 0-2 (0-2); Urobilinogen Urine 0.2 (0.2-1.0); pH Urine 5.5 (5.0-8.5)
[2022-06-26 13:54] LABS: Amorphous Sediment Urine Moderate; Bacteria Urine Moderate; Squamous Epithelial Cell Urine Moderate (None-Few)
== END 2022-06-26 14:40 | disposition home or self-care (01) ==
PROVIDERS: Emergency Provider Family Medicine; PCP Family Medicine
DX: I95.9 Hypotension, unspecified (principal); J18.9 Pneumonia, unspecified organism
CPT/HCPCS: 36415; 71045; 80048; 80076; 81001; 84484; 85025; 87086; 87186; 93005; 94761; 96365; 99284; 99285; A9270; J0696; J7030

== ENCOUNTER 2023-03-09 08:28 | Inpatient (IN) | payer MEDICARE, SELFPAY ==
[2023-03-09] VITALS (41 sets, daily range): BP systolic 122–172; BP diastolic 59–97; PULSE 61–105; RESP 18–28; TEMP 35.6–36.8; O2SAT 72–99; BMI 17.0; BMI 18.3
--- NOTE | 2023-03-09 08:56 | CRLHL7_ITS ---
For Patients: As a result of the Century Cures Act, medical imaging exams and procedure reports are released immediately into your electronic medical record. You may view this report before your referring provider. If you have questions, please contact your health care provider. INDICATION: Short of breath. COMPARISON: 26 June 2022. TECHNIQUE: One view. IMPRESSION: Hazy airspace opacity with peribronchial cuffing. Enlarged indistinct pulmonary vascularity. No focal airspace opacity for pneumonia. Findings suggest moderate volume overload or congestive failure. Dictated by Ramy Khan MD @ 03/09/2023 9:45:24 AM (Electronically Signed)
--- NOTE | 2023-03-09 08:58 | ED_ITS ---
HPI - SOB/Dyspnea General Chief Complaint: Shortness of Breath/Dyspnea Stated Complaint: shortness of breath Time Seen by Provider: 03/09/23 08:44 History of Present Illness HPI Narrative: This 87-year-old woman comes in with family members who reports shortness of breath that began this morning. Normally she ambulates with a walker and did so yesterday. She slept well last night but upon awakening this morning at around 7:30 a.m. she was very short of breath and unable to get up and ambulate. She arrives here with oximetry at 72% on room air. Oxygen is applied by non- rebreather mask which brings her to 89% oximetry. She does not report any chest pain. She thinks that she might have had a fever a few days ago but no temperature was measured. She does not report a cough. Related Data Home Medications Medication Instructions Recorded Confirmed aspirin 81 mg tablet,delayed 81 mg PO DAILY 01/30/22 03/09/23 release atorvastatin 40 mg tablet 40 mg PO HS 01/30/22 03/09/23 [id number] 1 tab PO Q4H PRN 01/30/22 03/09/23 50 mg-325 mg-40 mg tablet furosemide 40 mg tablet 40 mg PO MOWEFR 01/30/22 03/09/23 lisinopril 10 mg tablet 20 mg PO DAILY 01/30/22 03/09/23 meclizine 12.5 mg tablet 12.5 mg PO Q8H PRN 01/30/22 03/09/23 nitroglycerin 0.4 mg sublingual 0.4 mg sublingual Q5-15M PRN 01/30/22 03/09/23 tablet oxycodone 5 mg tablet 2.5 mg PO Q4H PRN 01/30/22 03/09/23 Lactobacillus acidophilus 10 10,000 mmu cells PO DAILY 03/09/23 03/09/23 billion cell capsule (Probacap) acetaminophen 500 mg tablet 1,000 mg PO TID 03/09/23 03/09/23 (Tylenol Extra Strength) hydroxyurea 500 mg capsule 500 - 1,000 mg PO DAILY 03/09/23 03/09/23 metoprolol tartrate 50 mg tablet 50 mg PO BID 03/09/23 03/09/23 Allergies Allergy/AdvReac Type Severity Reaction Status Date / Time morphine Allergy Severe Chest Pain Verified 03/09/23 11:24 penicillin V Allergy Severe Hives Verified 03/09/23 11:24 Sulfa (Sulfonamide Allergy Severe Hives Verified 03/09/23 11:24 Antibiotics) indomethacin Allergy Mild Rash Verified 03/09/23 11:24 propoxyphene Allergy Mild Rash Verified 03/09/23 11:24 Review of Systems Status of ROS: Reports: 10 or more systems reviewed and unremarkable except as noted in History and below Narrative: Constitutional: No weight gain or loss. Eyes: No discharge. No vision changes. HENT: No congestion, no sore throat, no ear pain. Cardiovascular: No chest pain, no palpitations. Respiratory: Shortness of breath. Gastrointestinal: No abdominal pain, no vomiting, no diarrhea. Genitourinary: No dysuria, no hematuria. Musculoskeletal: Normal range of motion. Skin: No rashes, no pruritis. Neurological: No dizziness, weakness, sensory change, speech change. Endo/Heme/Allergies: No bruising or bleeding. No polydipsia. Pysch: no suicidality, no anxiety, no insomnia. All other systems reviewed and are negative. [facility] Medical History (Updated 03/09/23 @ 14:39 by Darrius Simpson MD) Weakness ?R53.1 - Weakness (ICD-10) Temporal arteritis ?M31.6 - Other giant cell arteritis (ICD-10) Right sided temporal headache ?R51.9 - Headache, unspecified (ICD-10) Pyelonephritis ?N12 - Tubulo-interstitial nephritis, not specified as acute or chronic (ICD- 10) Leukopenia ?D72.819 - Decreased white blood cell count, unspecified (ICD-10) Acute prerenal failure ?N17.9 - Acute kidney failure, unspecified (ICD-10) Abdominal hernia ?K46.9 - Unspecified abdominal hernia without obstruction or gangrene (ICD- 10) Hypotension ?I95.9 - Hypotension, unspecified (ICD-10) Hypokalemia ?E87.6 - Hypokalemia (ICD-10) Chest pain ?R07.9 - Chest pain, unspecified (ICD-10) Anemia ?D64.9 - Anemia, unspecified (ICD-10) Social History What is your current living situation?: I presently have a place to live Problems where you live: no known problems Problems where you live details: N/A In the past 12 months, utilities in danger of being shut off: no In the past 12 mos, have been you worried that your food would run out before you had money to buy more?: never true In the past 12 mos, the food you bought just didn't last and you didn't have money to buy more?: never true Highest level of school completed/degree received: high school graduate Smoking Status: Former smoker Second hand tobacco smoke exposure: No How often do you have a drink containing alcohol: never How often do you have six or more drinks on one occasion: Never AUDIT-C Alcohol total score: 0 Non-prescribed substance use: denies use Caffeine: Yes (coffee, 1-2 cups a day) How often does anyone, including family, friends and others, physically hurt you : never How often does anyone, including family, friends and others, insult or talk down to you: never How often does anyone, including family, friends and others, threaten you with harm: never How often does anyone, including family, friends and others, scream or curse at you: never service: No Exam Narrative: Exam Narrative: Constitutional: Well-developed, well-nourished, no acute distress. HEENT: Normocephalic, atraumatic. Neck: Normal range of motion. Nontender. Supple. Heart: Regular. No murmurs. Normal rate. Intact distal pulses. Lungs: No chest discomfort. Bilateral wheezes. Use of accessory muscles for breathing. Abdomen: Normal bowel sounds. Nontender. No rebound tenderness. Genitalia: Deferred. Back: No midline tenderness. Normal range of motion. Extremities: Normal range of motion. No injury. Skin: Intact. No rash. Warm. No erythema or pallor. Neurologic: No altered sensation. No weakness. Alert and oriented. Psychiatric: No suicidality. No anxiety or depression. No insomnia. Nursing notes and vitals signs are reviewed. Const: Vital Signs, click to edit/add: Vital Signs - 24 hr 03/09/23 08:47 03/09/23 09:20 03/09/23 09:24 Temperature 97.1 F L Pulse Rate 74 Pulse Rate [Right Pulse Oximeter] 61 Respiratory Rate 20 Blood Pressure Blood Pressure [Ri ght Upper Arm] 172/69 H Pulse Oximetry 72 L 96 Oxygen Delivery Me thod Room Air Oxygen Flow Rate 30 Fraction of Inspir ed Oxygen 70 03/09/23 09:30 03/09/23 09:45 03/09/23 09:51 Temperature Pulse Rate 102 H 98 Pulse Rate [Right Pulse Oximeter] Respiratory Rate Blood Pressure Blood Pressure [Ri ght Upper Arm] Pulse Oximetry 95 99 99 Oxygen Delivery Me thod High Flow Nasal Ca nnula Oxygen Flow Rate 30 Fraction of Inspir ed Oxygen 03/09/23 10:00 03/09/23 10:04 03/09/23 10:15 Temperature Pulse Rate 102 H 103 H 102 H Pulse Rate [Right Pulse Oximeter] Respiratory Rate Blood Pressure 146/60 H Blood Pressure [Ri ght Upper Arm] Pulse Oximetry 98 96 95 Oxygen Delivery Me thod Oxygen Flow Rate Fraction of Inspir ed Oxygen 03/09/23 10:30 03/09/23 10:45 03/09/23 11:00 Temperature Pulse Rate 104 H 99 97 Pulse Rate [Right Pulse Oximeter] Respiratory Rate Blood Pressure Blood Pressure [Ri ght Upper Arm] Pulse Oximetry 95 95 94 Oxygen Delivery Me thod Oxygen Flow Rate Fraction of Inspir ed Oxygen 03/09/23 11:15 03/09/23 11:21 03/09/23 12:05 Temperature Pulse Rate 98 105 H Pulse Rate [Right Pulse Oximeter] Respiratory Rate Blood Pressure Blood Pressure [Ri ght Upper Arm] Pulse Oximetry 94 98 Oxygen Delivery Me thod Oxygen Flow Rate Fraction of Inspir ed Oxygen 40 03/09/23 12:07 03/09/23 12:08 03/09/23 12:09 Temperature Pulse Rate 99 98 Pulse Rate [Right Pulse Oximeter] Respiratory Rate Blood Pressure 145/97 H Blood Pressure [Ri ght Upper Arm] 146/67 H Pulse Oximetry 98 99 Oxygen Delivery Me thod Oxygen Flow Rate Fraction of Inspir ed Oxygen 03/09/23 12:15 03/09/23 12:18 03/09/23 12:30 Temperature Pulse Rate 98 100 Pulse Rate [Right Pulse Oximeter] Respiratory Rate Blood Pressure Blood Pressure [Ri ght Upper Arm] Pulse Oximetry 97 94 Oxygen Delivery Me thod Oxygen Flow Rate Fraction of Inspir ed Oxygen 35 03/09/23 12:45 03/09/23 13:00 03/09/23 13:15 Temperature Pulse Rate 97 68 96 Pulse Rate [Right Pulse Oximeter] Respiratory Rate Blood Pressure Blood Pressure [Ri ght Upper Arm] Pulse Oximetry 95 98 97 Oxygen Delivery Me thod Oxygen Flow Rate Fraction of Inspir ed Oxygen 03/09/23 13:30 03/09/23 13:45 03/09/23 14:00 Temperature Pulse Rate 98 105 H 104 H Pulse Rate [Right Pulse Oximeter] Respiratory Rate Blood Pressure Blood Pressure [Ri ght Upper Arm] Pulse Oximetry 95 93 96 Oxygen Delivery Me thod Oxygen Flow Rate Fraction of Inspir ed Oxygen 03/09/23 14:03 03/09/23 14:15 03/09/23 14:30 Temperature Pulse Rate 97 99 99 Pulse Rate [Right Pulse Oximeter] Respiratory Rate Blood Pressure 122/59 L Blood Pressure [Ri ght Upper Arm] Pulse Oximetry 95 94 90 Oxygen Delivery Me thod Oxygen Flow Rate Fraction of Inspir ed Oxygen Course Vital Signs Vital signs: Initial Vital Signs Temperature 97.1 F L 03/09/23 08:47 Temperature Source Temporal Artery Scan 03/09/23 08:47 Pulse Rate 61 03/09/23 08:47 Pulse Rhythm Regular 03/09/23 08:47 Respiratory Rate 20 03/09/23 08:47 Blood Pressure 172/69 H 03/09/23 08:47 Blood Pressure Mean 103 03/09/23 08:47 Blood Pressure Position Sitting 03/09/23 08:47 Pulse Oximetry 72 L 03/09/23 08:47 Oxygen Delivery Method Room Air 03/09/23 08:47 Vital Signs Temperature 97.1 F L 03/09/23 08:47 Pulse Rate 61 03/09/23 08:47 Respiratory Rate 20 03/09/23 08:47 Blood Pressure 172/69 H 03/09/23 08:47 Pulse Oximetry 72 L 03/09/23 08:47 Oxygen Delivery Method Room Air 03/09/23 08:47 Temperature 98.3 F 03/09/23 15:17 Pulse Rate 92 03/09/23 17:30 Respiratory Rate 18 03/09/23 17:30 Blood Pressure 158/76 H 03/09/23 17:30 Pulse Oximetry 95 03/09/23 17:30 Oxygen Delivery Method BiPAP 03/09/23 17:30 Oxygen Flow Rate 25 03/09/23 15:17 Fraction of Inspired Oxygen 0.21 03/09/23 17:06 MDM - SOB/Dyspnea MDM Narrative Medical decision making narrative: This patient arrives with shortness of breath and benefited from oxygen by nasal cannula but this was switched to high-flow oxygen. This brought her oximetry up to 95% and so the setting was reduced from 70-40. She has been doing better with this treatment. Chest x-ray is obtained which shows more of a fluid overload picture. Her lab results returned remarkable for leukocytosis with a white count at 24,000. Her potassium is a bit low at 2.9 and her D-dimer is elevated at 2.2. Her troponin returns at 0.13 which is likely related to demand ischemia. A CT scan of the chest with IV contrast is obtained. There is no finding of pulmonary embolism nor is there evidence of pneumonia. There is some fluid overload that is lateralizing as she prefers to lay on her right side. Urinalysis is negative for infection. The patient has normal temperature. It is uncertain what is causing her leukocytosis. She did received 20 mg of Lasix by IV. I did speak with the hospitalist construction operations manager, Dr. Nolen, who agrees to her admission. Lab Data Labs: Lab Results 03/09/23 03/09/23 03/09/23 Range/Units 08:52 09:45 09:45 WBC 24.93 H 25.46 H* (4.50-11.00) K/uL RBC 4.43 (4.00-5.20) m/uL Hgb (12.0-16.0) gm/dL Hct (33.0-51.0) % MCV (80-100) fL MCH (26-34) pg MCHC (32-36) gm/dL RDW Coeff of Amber (11.5-15.5) % Plt Count (140-440) K/uL Neut % (Auto) (42.0-72.0) % Lymph % (Auto) (20-44) % [place] % (Auto) (0.0-11.0) % Eos % (Auto) (0.0-7.0) % Baso % (Auto) (0.0-3.0) % Neut # (Auto) (1.7-7.0) K/uL Lymph # (Auto) (0.90-2.90) K/uL [place] # (Auto) (0.00-0.90) K/UL Eos # (Auto) (0.00-0.50) K/uL Baso # (Auto) (0.00-0.30) K/uL Abs Immat Gran (auto) (0.00-0.30) K/uL Imm/Tot Granulo (auto) % Diff Slide Review (Acceptable) INR (0.91-1.10) APTT (23-33) Seconds D-Dimer Quant (PE/DVT) (0.00-0.50) ug/ml VBG pH (7.32-7.43) VBG pCO2 (40-50) mmHG VBG pO2 (25-47) mmHG VBG HCO3 (21-28) mmol/L Sodium (135-149) mmol/L Potassium (3.6-5.1) mmol/L Chloride (96-114) mmol/L Carbon Dioxide (20-32) mmol/L BUN (7-30) mg/dL Creatinine (0.5-1.5) mg/dL Estimated Creat Clear Estimated GFR ml/min Glucose (60-115) mg/dL Calcium (8.4-10.6) mg/dL Magnesium (1.5-2.6) mg/dL NT-Pro-B Natriuret Pep pg/mL Procalcitonin (<0.50) ng/mL Urine Color (Yellow) Urine Appearance (Clear) Urine pH (5.0-8.5) Ur Specific [place] (1.000-1.030) Urine Protein (Negative) Urine Glucose (UA) (Negative) Urine Ketones (Negative) Urine Blood (Negative) Urine Nitrite (Negative) Urine Bilirubin (Negative) Urine Urobilinogen (0.2-1.0) Ur Leukocyte Esterase (Negative) Urine RBC (0-2) Urine WBC (0-5) Ur Squamous Epith Cells (None-Few) Urine Bacteria (None) SARS-CoV-2 (PCR) Negative SARS-CoV-2 (Negative) Influenza Type A (PCR) Negative PCR FLU A (Negative) Influenza Type B (PCR) Negative PCR FLU B (Negative) RSV (PCR) Negative PCR RSV (Negative) Lab Acknowledgement POC Troponin I (0.01-0.04) ng/ml 03/09/23 03/09/23 03/09/23 Range/Units 09:45 09:45 09:45 WBC (4.50-11.00) K/uL RBC 4.46 (4.00-5.20) m/uL Hgb 15.5 15.6 (12.0-16.0) gm/dL Hct 48.8 49.1 (33.0-51.0) % MCV 110 H (80-100) fL MCH (26-34) pg MCHC (32-36) gm/dL RDW Coeff of Amber (11.5-15.5) % Plt Count (140-440) K/uL Neut % (Auto) (42.0-72.0) % Lymph % (Auto) (20-44) % [place] % (Auto) (0.0-11.0) % Eos % (Auto) (0.0-7.0) % Baso % (Auto) (0.0-3.0) % Neut # (Auto) (1.7-7.0) K/uL Lymph # (Auto) (0.90-2.90) K/uL [place] # (Auto) (0.00-0.90) K/UL Eos # (Auto) (0.00-0.50) K/uL Baso # (Auto) (0.00-0.30) K/uL Abs Immat Gran (auto) (0.00-0.30) K/uL Imm/Tot Granulo (auto) % Diff Slide Review (Acceptable) INR (0.91-1.10) APTT (23-33) Seconds D-Dimer Quant (PE/DVT) (0.00-0.50) ug/ml VBG pH (7.32-7.43) VBG pCO2 (40-50) mmHG VBG pO2 (25-47) mmHG VBG HCO3 (21-28) mmol/L Sodium (135-149) mmol/L Potassium (3.6-5.1) mmol/L Chloride (96-114) mmol/L Carbon Dioxide (20-32) mmol/L BUN (7-30) mg/dL Creatinine (0.5-1.5) mg/dL Estimated Creat Clear Estimated GFR ml/min Glucose (60-115) mg/dL Calcium (8.4-10.6) mg/dL Magnesium (1.5-2.6) mg/dL NT-Pro-B Natriuret Pep pg/mL Procalcitonin (<0.50) ng/mL Urine Color (Yellow) Urine Appearance (Clear) Urine pH (5.0-8.5) Ur Specific [place] (1.000-1.030) Urine Protein (Negative) Urine Glucose (UA) (Negative) Urine Ketones (Negative) Urine Blood (Negative) Urine Nitrite (Negative) Urine Bilirubin (Negative) Urine Urobilinogen (0.2-1.0) Ur Leukocyte Esterase (Negative) Urine RBC (0-2) Urine WBC (0-5) Ur Squamous Epith Cells (None-Few) Urine Bacteria (None) SARS-CoV-2 (PCR) (Negative) Influenza Type A (PCR) (Negative) Influenza Type B (PCR) (Negative) RSV (PCR) (Negative) Lab Acknowledgement POC Troponin I (0.01-0.04) ng/ml 03/09/23 03/09/23 03/09/23 Range/Units 09:45 09:45 09:45 WBC (4.50-11.00) K/uL RBC (4.00-5.20) m/uL Hgb (12.0-16.0) gm/dL Hct (33.0-51.0) % MCV 110 H (80-100) fL MCH 35 H 35 H (26-34) pg MCHC 32 32 (32-36) gm/dL RDW Coeff of Amber 16.3 H (11.5-15.5) % Plt Count 241 (140-440) K/uL Neut % (Auto) (42.0-72.0) % Lymph % (Auto) (20-44) % [place] % (Auto) (0.0-11.0) % Eos % (Auto) (0.0-7.0) % Baso % (Auto) (0.0-3.0) % Neut # (Auto) (1.7-7.0) K/uL Lymph # (Auto) (0.90-2.90) K/uL [place] # (Auto) (0.00-0.90) K/UL Eos # (Auto) (0.00-0.50) K/uL Baso # (Auto) (0.00-0.30) K/uL Abs Immat Gran (auto) (0.00-0.30) K/uL Imm/Tot Granulo (auto) % Diff Slide Review (Acceptable) INR (0.91-1.10) APTT (23-33) Seconds D-Dimer Quant (PE/DVT) (0.00-0.50) ug/ml VBG pH (7.32-7.43) VBG pCO2 (40-50) mmHG VBG pO2 (25-47) mmHG VBG HCO3 (21-28) mmol/L Sodium (135-149) mmol/L Potassium (3.6-5.1) mmol/L Chloride (96-114) mmol/L Carbon Dioxide (20-32) mmol/L BUN (7-30) mg/dL Creatinine (0.5-1.5) mg/dL Estimated Creat Clear Estimated GFR ml/min Glucose (60-115) mg/dL Calcium (8.4-10.6) mg/dL Magnesium (1.5-2.6) mg/dL NT-Pro-B Natriuret Pep pg/mL Procalcitonin (<0.50) ng/mL Urine Color (Yellow) Urine Appearance (Clear) Urine pH (5.0-8.5) Ur Specific [place] (1.000-1.030) Urine Protein (Negative) Urine Glucose (UA) (Negative) Urine Ketones (Negative) Urine Blood (Negative) Urine Nitrite (Negative) Urine Bilirubin (Negative) Urine Urobilinogen (0.2-1.0) Ur Leukocyte Esterase (Negative) Urine RBC (0-2) Urine WBC (0-5) Ur Squamous Epith Cells (None-Few) Urine Bacteria (None) SARS-CoV-2 (PCR) (Negative) Influenza Type A (PCR) (Negative) Influenza Type B (PCR) (Negative) RSV (PCR) (Negative) Lab Acknowledgement POC Troponin I (0.01-0.04) ng/ml 03/09/23 03/09/23 03/09/23 Range/Units 09:45 09:45 12:01 WBC (4.50-11.00) K/uL RBC (4.00-5.20) m/uL Hgb (12.0-16.0) gm/dL Hct (33.0-51.0) % MCV (80-100) fL MCH (26-34) pg MCHC (32-36) gm/dL RDW Coeff of Amber (11.5-15.5) % Plt Count 255 (140-440) K/uL Neut % (Auto) 90.9 H (42.0-72.0) % Lymph % (Auto) 5.0 L (20-44) % [place] % (Auto) 1.2 (0.0-11.0) % Eos % (Auto) 0.3 (0.0-7.0) % Baso % (Auto) 0.4 (0.0-3.0) % Neut # (Auto) 22.70 H (1.7-7.0) K/uL Lymph # (Auto) 1.20 (0.90-2.90) K/uL [place] # (Auto) 0.30 (0.00-0.90) K/UL Eos # (Auto) 0.10 (0.00-0.50) K/uL Baso # (Auto) 0.10 (0.00-0.30) K/uL Abs Immat Gran (auto) 0.50 H (0.00-0.30) K/uL Imm/Tot Granulo (auto) 2.2 % Diff Slide Review Acceptable Review (Acceptable) INR 1.04 (0.91-1.10) APTT 41 H (23-33) Seconds D-Dimer Quant (PE/DVT) 2.29 H (0.00-0.50) ug/ml VBG pH 7.359 (7.32-7.43) VBG pCO2 46 (40-50) mmHG VBG pO2 31.0 (25-47) mmHG VBG HCO3 26 (21-28) mmol/L Sodium 138 (135-149) mmol/L Potassium 2.9 L* (3.6-5.1) mmol/L Chloride 103 (96-114) mmol/L Carbon Dioxide 26 (20-32) mmol/L BUN 11 (7-30) mg/dL Creatinine 0.6 (0.5-1.5) mg/dL Estimated Creat Clear 29.16 Estimated GFR 88 ml/min Glucose 158 H (60-115) mg/dL Calcium 8.5 (8.4-10.6) mg/dL Magnesium 1.8 (1.5-2.6) mg/dL NT-Pro-B Natriuret Pep 19734 pg/mL Procalcitonin 0.20 (<0.50) ng/mL Urine Color Light yellow (Yellow) Urine Appearance Slightly Cloudy A (Clear) Urine pH 6.0 (5.0-8.5) Ur Specific [place] 1.010 (1.000-1.030) Urine Protein Negative (Negative) Urine Glucose (UA) Negative (Negative) Urine Ketones Negative (Negative) Urine Blood Trace-intact A (Negative) Urine Nitrite Negative (Negative) Urine Bilirubin Negative (Negative) Urine Urobilinogen 0.2 (0.2-1.0) Ur Leukocyte Esterase Negative (Negative) Urine RBC 2-5 A (0-2) Urine WBC 0-2 (0-5) Ur Squamous Epith Cells Moderate A (None-Few) Urine Bacteria None (None) SARS-CoV-2 (PCR) (Negative) Influenza Type A (PCR) (Negative) Influenza Type B (PCR) (Negative) RSV (PCR) (Negative) Lab Acknowledgement Test Added Test Added POC Troponin I 0.13 H (0.01-0.04) ng/ml Imaging Data Chest x-ray: Radiologist's impression: Hazy airspace opacity with peribronchial cuffing. Enlarged indistinct pulmonary vascularity. No focal airspace opacity for pneumonia. Findings suggest moderate volume overload or congestive failure. CT scan - chest: Radiologist's impression: 1. No pulmonary embolism. 2. Pulmonary edema and right greater than left pleural effusions suggest congestive failure or volume overload. 3. Incomplete visualization of chronic right upper quadrant hernia containing large bowel. 4. Left-sided goiter. ECG Data Attestation: I personally reviewed and interpreted this ECG as follows: Interpretation: AV dual paced rhythm. Rate is 61 beats per minute. There are no specific ST or T-wave abnormalities. Discharge Plan Discharge Clinical Impression: Congestive heart failure, Leukocytosis Patient Disposition: Admitted As Inpatient Condition: Improved
--- NOTE | 2023-03-09 09:21 | RESP.RT ---
Patient SAT on Oxymask was 87% on 8L and was switched to .70HFNC @ 30Lpm improving SATs to 95%. Patient has been coughing up yellow mucus this morning per her grandsons. When repositioning her SATs drop and she sounds wet with swollen feet, so the difficulty breathing may be fluid related. Recommend raising the head of the bed and weaning HFNC as tolerated to give time to take off some fluid. CPAP will be considered if SATs continue to drop.
[2023-03-09 09:37] LABS: PCR FLU A Negative PCR FLU A (Negative); PCR FLU B Negative PCR FLU B (Negative); PCR RSV Negative PCR RSV (Negative)
[2023-03-09 09:39] LABS: SARS PCR* Negative SARS-CoV-2 (Negative)
[2023-03-09 09:49] LABS: HCO3 VBG 26 mmol/L (21-28); PCO2 VBG 46 mmHG (40-50); pH VBG 7.359 (7.32-7.43)
[2023-03-09 09:52] LABS: Basophils Percent Auto 0.4 % (0.0-3.0); Eosinophils Percent Auto 0.3 % (0.0-7.0); Hematocrit 48.8 % (33.0-51.0); Hemoglobin* 15.5 gm/dL (12.0-16.0); Immature Granulocytes Pct Auto 2.2 %; Mean Corpuscular HGB Conc 32 gm/dL (32-36); Mean Corpuscular Hemoglobin 35 pg (26-34); Mean Corpuscular Volume 110 fL (80-100); Monocytes Percent Auto 1.2 % (0.0-11.0); Neutrophils Percent Auto 90.9 % (42.0-72.0); Platelet Count* 241 K/uL (140-440); RDW Coefficient of Variation % 16.3 % (11.5-15.5); Red Blood Count 4.43 m/uL (4.00-5.20); White Blood Count* 24.93 K/uL (4.50-11.00)
[2023-03-09 09:57] LABS: Troponin, Point-of-Care* 0.13 ng/ml (0.01-0.04)
[2023-03-09] MEDS: FUROSEMIDE 10 MG/ML inj 20 MG IVP ×2 (09:58→16:27)
--- NOTE | 2023-03-09 10:03 | ED.NURSE ---
FiO2 adjusted to 40% down from 70% as saturations at 99% per guidance from RT. Patient responding well to high flow.
[2023-03-09 10:22] LABS: Slide Review Reflex Yes
[2023-03-09 10:23] LABS: Slide Review Acceptable Review (Acceptable)
[2023-03-09 10:24] LABS: Chloride* 103 mmol/L (96-114); Sodium* 138 mmol/L (135-149)
[2023-03-09 10:27] LABS: Blood Urea Nitrogen* 11 mg/dL (7-30); Carbon Dioxide* 26 mmol/L (20-32); Creatinine* 0.6 mg/dL (0.5-1.5); Est. Creatinine Clearance* 29.16; Estimated Glomerular Filt Rate 88 ml/min
[2023-03-09 10:28] LABS: Calcium* 8.5 mg/dL (8.4-10.6); Glucose* 158 mg/dL (60-115); Potassium* 2.9 mmol/L (3.6-5.1)
[2023-03-09 10:34] LABS: D Dimer Quantitative* 2.29 ug/ml (0.00-0.50)
[2023-03-09 10:38] LABS: NT Pro B Type NatriureticPept* 11300 pg/mL
--- NOTE | 2023-03-09 10:46 | CRLHL7_ITS ---
For Patients: As a result of the Century Cures Act, medical imaging exams and procedure reports are released immediately into your electronic medical record. You may view this report before your referring provider. If you have questions, please contact your health care provider. INDICATION: Shortness of breath. Elevated D-dimer. COMPARISON: [address] TECHNIQUE: 95 mL [id number] IV contrast. FINDINGS: Enlargement of the heterogeneous left thyroid with slight deviation of the trachea to the right but no narrowing. Stippled calcifications. Large right dependent pleural effusion and moderate left dependent pleural effusion. Adequate bolus timing. No pulmonary embolism filling defects and no right heart strain findings. Ground-glass opacity in the aerated lungs suggest pulmonary edema. Some areas of sparing. Atelectasis associated with the effusions in the right lower lobe and to a lesser degree middle lobe and upper lobe. Some minor atelectasis dependent left lower lobe. Ectatic atherosclerotic non aneurysmal aorta. Left chest pacer body and right heart transvenous wires. Moderate coronary artery atherosclerosis. Incomplete visualization of the right lateral upper abdominal wall hernia containing large bowel which does not appear obstructed or incarcerated but this finding is not diagnostically assessed in the field of view. Incomplete visualization of small left renal cyst. IMPRESSION: 1. No pulmonary embolism. 2. Pulmonary edema and right greater than left pleural effusions suggest congestive failure or volume overload. 3. Incomplete visualization of chronic right upper quadrant hernia containing large bowel. 4. Left-sided goiter. Please note that all CT scans at this facility use dose modulation, iterative reconstruction, and/or weight-based dosing when appropriate to reduce radiation dose to as low as reasonably achievable. Dictated by Ramy Khan MD @ 03/09/2023 12:13:04 PM (Electronically Signed)
--- NOTE | 2023-03-09 12:13 | ED.NURSE ---
Patient had large incontinent episode after lasix administration. Changed bedding and pull up. Obtained U/A and sent to lab. She was an assist of 1 with gait belt and walker and transferred to [facility].
[2023-03-09 12:15] LABS: Appearance Urine Slightly Cloudy (Clear); Bilirubin Urine Negative (Negative); Blood Urine Trace-intact (Negative); Color Urine Light yellow (Yellow); Glucose Urine Negative (Negative); Ketones Urine Negative (Negative); Leukocyte Esterase Urine Negative (Negative); Nitrite Urine Negative (Negative); Protein Urine Negative (Negative); Urobilinogen Urine 0.2 (0.2-1.0); WBC Urine 0-2 (0-5)
[2023-03-09 12:16] LABS: Squamous Epithelial Cell Urine Moderate (None-Few)
[2023-03-09] MEDS: ACETAMINOPHEN 325 MG TABLET 650 MG PO (13:12)
--- NOTE | 2023-03-09 14:28 | PM.IMHP1 ---
Hospitalist- H&P: HPI History of Present Illness Date Seen: 03/09/23 Chief complaint: shortness of breath Narrative: Braulio Gregory is a 87 year old female with past medical history of polycythemia vera, HTN, CAD, ?CHF, presenting to ED today for evaluation of SOB. Hx obtained with assistance of Grandsons. Her Grandson Man is her POA and she lives with him. She has had several days of SOB. She endorses orthopnea. She denies chest pain, chest pressure, fever and cough. She endorses mild lower extremity edema. She endorses generalized weakness and fatigue. In the ED the patient was hypoxic with O2 Sat of 72% on room air. CT PE study was negative for PE, Pulmonary edema and right greater than left pleural effusions suggest congestive failure or volume overload.Incomplete visualization of chronic right upper quadrant hernia containing large bowel. Notable labs included WBC 24.9 bnp [id number] 2.9. POC trop 0.13. EKG with paced rhythm. She was given 20 mg IV lasix and admitted for further evaluation. IMPRESSION: 1. No pulmonary embolism. 2. Pulmonary edema and right greater than left pleural effusions suggest congestive failure or volume overload. 3. Incomplete visualization of chronic right upper quadrant hernia containing large bowel. 4. Left-sided goiter. Review of Systems Status of ROS: Reports: 10 or more systems reviewed and unremarkable except as noted in History and below [facility] Medical History (Updated 03/09/23 @ 14:39 by Darrius Simpson MD) Weakness ?R53.1 - Weakness (ICD-10) Temporal arteritis ?M31.6 - Other giant cell arteritis (ICD-10) Right sided temporal headache ?R51.9 - Headache, unspecified (ICD-10) Pyelonephritis ?N12 - Tubulo-interstitial nephritis, not specified as acute or chronic (ICD-10) Leukopenia ?D72.819 - Decreased white blood cell count, unspecified (ICD-10) Acute prerenal failure ?N17.9 - Acute kidney failure, unspecified (ICD-10) Abdominal hernia ?K46.9 - Unspecified abdominal hernia without obstruction or gangrene (ICD-10) Hypotension ?I95.9 - Hypotension, unspecified (ICD-10) Hypokalemia ?E87.6 - Hypokalemia (ICD-10) Chest pain ?R07.9 - Chest pain, unspecified (ICD-10) Anemia ?D64.9 - Anemia, unspecified (ICD-10) Social History What is your current living situation?: I presently have a place to live Problems where you live: no known problems Problems where you live details: N/A In the past 12 months, utilities in danger of being shut off: no In the past 12 mos, have been you worried that your food would run out before you had money to buy more?: never true In the past 12 mos, the food you bought just didn't last and you didn't have money to buy more?: never true Highest level of school completed/degree received: high school graduate Smoking Status: Former smoker Second hand tobacco smoke exposure: No How often do you have a drink containing alcohol: never How often do you have six or more drinks on one occasion: Never AUDIT-C Alcohol total score: 0 Non-prescribed substance use: denies use Caffeine: Yes (coffee, 1-2 cups a day) How often does anyone, including family, friends and others, physically hurt you: never How often does anyone, including family, friends and others, insult or talk down to you: never How often does anyone, including family, friends and others, threaten you with harm: never How often does anyone, including family, friends and others, scream or curse at you: never service: No Meds Home Medications and Allergies Home Medications Medication Instructions Recorded Confirmed Type aspirin 81 mg tablet,delayed 81 mg PO DAILY 01/30/22 03/09/23 History release atorvastatin 40 mg tablet 40 mg PO HS 01/30/22 03/09/23 History shrvwwumuw-pgmmjledstfcn-imsealzh 1 tab PO Q4H PRN 01/30/22 03/09/23 History 50 mg-325 mg-40 mg tablet furosemide 40 mg tablet 40 mg PO MOWEFR 01/30/22 03/09/23 History lisinopril 10 mg tablet 20 mg PO DAILY 01/30/22 03/09/23 History meclizine 12.5 mg tablet 12.5 mg PO Q8H PRN 01/30/22 03/09/23 History nitroglycerin 0.4 mg sublingual 0.4 mg sublingual Q5-15M PRN 01/30/22 03/09/23 History tablet oxycodone 5 mg tablet 2.5 mg PO Q4H PRN 01/30/22 03/09/23 History Lactobacillus acidophilus 10 10,000 mmu cells PO DAILY 03/09/23 03/09/23 History billion cell capsule (Probacap) acetaminophen 500 mg tablet 1,000 mg PO TID 03/09/23 03/09/23 History (Tylenol Extra Strength) hydroxyurea 500 mg capsule 500 - 1,000 mg PO DAILY 03/09/23 03/09/23 History metoprolol tartrate 50 mg tablet 50 mg PO BID 03/09/23 03/09/23 History Allergies Allergy/AdvReac Type Severity Reaction Status Date / Time morphine Allergy Severe Chest Pain Verified 03/09/23 11:24 penicillin V Allergy Severe Hives Verified 03/09/23 11:24 Sulfa (Sulfonamide Allergy Severe Hives Verified 03/09/23 11:24 Antibiotics) indomethacin Allergy Mild Rash Verified 03/09/23 11:24 propoxyphene Allergy Mild Rash Verified 03/09/23 11:24 Exam Narrative: Exam Narrative: Gen: no acute distress HEENT: NCAT EOMI mmm Neck: Supple CV: RRR normal s1 s2 Lungs: bibasilar crackles Abd: Soft,nt, nd Neuro: Alert, oriented to place but not time, CN grossly intact; nonfocal screening?exam Psych: appropriate affect MSK: age appropriate muscle mass Skin; Warm, dry no rash on face Ext: 1+ BLE edema Const: Vital Signs, click to edit/add: Vital Signs - 24 hr 03/09/23 08:47 03/09/23 09:20 03/09/23 09:24 Temperature 97.1 F L Pulse Rate 74 Pulse Rate [Right Pulse Oximeter] 61 Respiratory Rate 20 Blood Pressure Blood Pressure [Ri ght Upper Arm] 172/69 H Pulse Oximetry 72 L 96 Oxygen Delivery Me thod Room Air Oxygen Flow Rate 30 Fraction of Inspir ed Oxygen 70 03/09/23 09:30 03/09/23 09:45 03/09/23 09:51 Temperature Pulse Rate 102 H 98 Pulse Rate [Right Pulse Oximeter] Respiratory Rate Blood Pressure Blood Pressure [Ri ght Upper Arm] Pulse Oximetry 95 99 99 Oxygen Delivery Me thod High Flow Nasal Ca nnula Oxygen Flow Rate 30 Fraction of Inspir ed Oxygen 03/09/23 10:00 03/09/23 10:04 03/09/23 10:15 Temperature Pulse Rate 102 H 103 H 102 H Pulse Rate [Right Pulse Oximeter] Respiratory Rate Blood Pressure 146/60 H Blood Pressure [Ri ght Upper Arm] Pulse Oximetry 98 96 95 Oxygen Delivery Me thod Oxygen Flow Rate Fraction of Inspir ed Oxygen 03/09/23 10:30 03/09/23 10:45 03/09/23 11:00 Temperature Pulse Rate 104 H 99 97 Pulse Rate [Right Pulse Oximeter] Respiratory Rate Blood Pressure Blood Pressure [Ri ght Upper Arm] Pulse Oximetry 95 95 94 Oxygen Delivery Me thod Oxygen Flow Rate Fraction of Inspir ed Oxygen 03/09/23 11:15 03/09/23 11:21 03/09/23 12:05 Temperature Pulse Rate 98 105 H Pulse Rate [Right Pulse Oximeter] Respiratory Rate Blood Pressure Blood Pressure [Ri ght Upper Arm] Pulse Oximetry 94 98 Oxygen Delivery Me thod Oxygen Flow Rate Fraction of Inspir ed Oxygen 40 03/09/23 12:07 03/09/23 12:08 03/09/23 12:09 Temperature Pulse Rate 99 98 Pulse Rate [Right Pulse Oximeter] Respiratory Rate Blood Pressure 145/97 H Blood Pressure [Ri ght Upper Arm] 146/67 H Pulse Oximetry 98 99 Oxygen Delivery Me thod Oxygen Flow Rate Fraction of Inspir ed Oxygen 03/09/23 12:15 03/09/23 12:18 03/09/23 12:30 Temperature Pulse Rate 98 100 Pulse Rate [Right Pulse Oximeter] Respiratory Rate Blood Pressure Blood Pressure [Ri ght Upper Arm] Pulse Oximetry 97 94 Oxygen Delivery Me thod Oxygen Flow Rate Fraction of Inspir ed Oxygen 35 03/09/23 12:45 03/09/23 13:00 03/09/23 13:15 Temperature Pulse Rate 97 68 96 Pulse Rate [Right Pulse Oximeter] Respiratory Rate Blood Pressure Blood Pressure [Ri ght Upper Arm] Pulse Oximetry 95 98 97 Oxygen Delivery Me thod Oxygen Flow Rate Fraction of Inspir ed Oxygen 03/09/23 13:30 Temperature Pulse Rate 98 Pulse Rate [Right Pulse Oximeter] Respiratory Rate Blood Pressure Blood Pressure [Ri ght Upper Arm] Pulse Oximetry 95 Oxygen Delivery Me thod Oxygen Flow Rate Fraction of Inspir ed Oxygen Hospitalist - H&P: Result Labs Labs: Short CBC 03/09/23 Range/Units 09:45 WBC 24.93 H (4.50-11.00) K/uL Hgb 15.5 (12.0-16.0) gm/dL Hct 48.8 (33.0-51.0) % Plt Count 241 (140-440) K/uL BMP 03/09/23 09:45 Sodium 138 Potassium 2.9 L* Chloride 103 Carbon Dioxide 26 BUN 11 Creatinine 0.6 Glucose 158 H Calcium 8.5 Urine 03/09/23 Range/Units 12:01 Urine Color Light yellow (Yellow) Urine Appearance Slightly Cloudy A (Clear) Urine pH 6.0 (5.0-8.5) Ur Specific Orestes 1.010 (1.000-1.030) Urine Protein Negative (Negative) Urine Glucose (UA) Negative (Negative) Assessment and Plan Assessment and plan (1) Acute respiratory failure with hypoxia: Status: Acute (2) Congestive heart failure: Status: Acute (3) CAD (coronary artery disease): Status: Acute (4) Hypertension: Status: Acute (5) Hypokalemia: Status: Acute (6) Leukocytosis: Status: Acute (7) Myeloproliferative disorder: Status: Acute (8) History of polycythemia vera: 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 Status: Acute (9) Thyroid nodule: Status: Acute Plan Assessment: Braulio Gregory is a 87 year old female with past medical history of polycythemia vera, HTN, CAD, ?CHF, presenting to ED today for evaluation of SOB. Hx obtained with assistance of Grandsons. Her Grandson Man is her POA and she lives with him. She has had several days of SOB but suddenly worsened today. She endorses orthopnea. She denies chest pain, chest pressure, fever and cough. She endorses mild lower extremity edema. She endorses generalized weakness and fatigue. In the ED the patient was hypoxic with O2 Sat of 72% on room air. CT PE study was negative for PE, Pulmonary edema and right greater than left pleural effusions suggest congestive failure or volume overload.Incomplete visualization of chronic right upper quadrant hernia containing large bowel. Notable labs included WBC 24.9 bnp [id number] 2.9. POC trop 0.13. EKG with paced rhythm. She was given 20 mg IV lasix and admitted for further evaluation. 1. Acute hypoxic respiratory failure; acute on chronic CHF exacerbation baseline EF unknown, Hx of CAD, HTN; BNP 11,300. CT PE study showing Pulmonary edema and right greater than left pleural effusions suggest congestive failure or volume overload; suspect elevated troponin secondary to resp failure and CHF exacerbation 2. Hypokalemia 3. Hx of Polycythemia vera, myelopriolferative disorder, leukocytosis WBC 24.9 4. Hx of Thyroid Nodule 5. Hx of RUQ abdominal hernia 6. Genarlized weakness Plan -admit to CCU -tele -echo -continue IV lasix -electrolyte replacement -daily weight -low sodium diet -PT, OT evaluation -check Mg -check TSH -check Procal -check UA -repeat Trop Code status-Full code; previously DNR but she said she wants to be full code her POA is Grandson Man her verified full code status DVT ppx-heparin subq Anticipated LOS 3+ days addendum: patient re-evaluated having chest pain and difficulty breathing, will apply BIPAP, repeat EKG, trop elevated; will start heparin drip; aspirin will contact [facility] for ICU transfer
[2023-03-09 14:52] LABS: Magnesium* 1.8 mg/dL (1.5-2.6)
[2023-03-09 15:49] LABS: Troponin I* 1.06 ng/mL (0.01-0.04)
[2023-03-09] MEDS: POTASSIUM CHLORIDE 10 MEQ CAPSULE ER 40 MEQ PO (16:26)
[2023-03-09] MEDS: POTASSIUM CHLORIDE 10 MEQ CAPSULE ER PO (16:26)
[2023-03-09] MEDS: MAGNESIUM OXIDE 400 MG TABLET PO (16:27)
[2023-03-09 16:39] LABS: Hematocrit 49.1 % (33.0-51.0); Hemoglobin* 15.6 gm/dL (12.0-16.0); Mean Corpuscular HGB Conc 32 gm/dL (32-36); Mean Corpuscular Hemoglobin 35 pg (26-34); Mean Corpuscular Volume 110 fL (80-100); Platelet Count* 255 K/uL (140-440); Red Blood Count 4.46 m/uL (4.00-5.20)
[2023-03-09 16:41] LABS: INR 1.04 (0.91-1.10); Prothrombin Time 14.2 Seconds
[2023-03-09 16:42] LABS: Partial Thromboplastin Time* 41 Seconds (23-33)
[2023-03-09 16:45] LABS: Slide Review Reflex No; White Blood Count* 25.46 K/uL (4.50-11.00)
[2023-03-09] MEDS: HEPARIN 5,000 UNIT/0.5 ML INJ 2900 UNIT IVP (17:10)
[2023-03-09] MEDS: HEPARIN 25,000 UNIT/500 ML BAG 11 UNIT IV (17:10)
[2023-03-09] MEDS: ASPIRIN 81 MG TAB.CHEW 324 MG PO (17:38)
[2023-03-09] MEDS: FUROSEMIDE 10 MG/ML inj 40 MG IVP (17:38)
[2023-03-09] MEDS: SODIUM CHLORIDE 0.9 % (FLUSH) 10 ML SYRINGE 5 ML IVF (17:39)
[2023-03-09 19:30] LABS: HCO3 VBG 28 mmol/L (21-28); PCO2 VBG 39 mmHG (40-50); pH VBG 7.461 (7.32-7.43)
[2023-03-09 19:46] LABS: Potassium* 3.2 mmol/L (3.6-5.1)
--- NOTE | 2023-03-09 19:56 | PC.NURSE ---
Admission-- Very pleasant, alert and oriented, but forgetful, patient was admitted to med-surg via cart this afternoon. Grandson and POA Man at bedside. VSS and pt is afebrile. Pt arrived with high flow n.c. in place at 25L and 30% FiO2 and was changed to Bipap per MD request. O2 sats maintained >90% on Bipap with settings in place per RT. She denied pain initially, but did c/o CP and difficulty breathing after a short time. MD was notified. Critical troponin of 1.06 per report from lab. EKG completed. Pt was given PO potassium and magnesium, ASA and Lasix per MD order and catheter was inserted. Heparin drip initiated at 550units per hour. Nurse to nurse report given to Chip at [facility] and all questions were answered. Currently awaiting transport via EMS to [place] for cardiology. Report given to ALEXIS Mcdaniel.
--- NOTE | 2023-03-09 21:56 | PC.NURSE ---
Patient transferred by EMS at 2044 to [place] Rm 5034 . Previous nurse gave nurse to nurse report. Grandson and caregiver Man called and informed of transfer time. All patient belongings sent with Man. Patient did not tolerate BiPAP removing the mask at 2004 and stating I'm not putting that F...... mask back on. O2 sats 91% on RA. EMS aware. Denies pain. Heparin drip running at 550.
== END 2023-03-09 20:45 | disposition short-term general hospital (02) | DRG 281 ==
LOC: ED 12:28 → MEDSURG 14:49
PROVIDERS: Admitting Provider Internal Medicine; Emergency Provider Emergency Medicine Emergency Medical Services; PCP Family Medicine; Visit Provider Hospitalist
DX: I50.23 Acute on chronic systolic (congestive) heart failure (principal); I21.A1 Myocardial infarction type 2; C94.6 Myelodysplastic disease, not elsewhere classified; I25.110 Atherosclerotic heart disease of native coronary artery with unstable angina pectoris; I11.0 Hypertensive heart disease with heart failure; D45 Polycythemia vera; I25.84 Coronary atherosclerosis due to calcified coronary lesion
CPT/HCPCS: 36415; 51701; 71045; 71275; 80048; 81001; 82803; 83735; 83880; 84132; 84145; 84484; 85025; 85027; 85379; 85610; 85730; 87040; 87631; 93005; 93306; 94660; 94761; 99285; 99291; A9270; J1644; J1940; Q9967

== ENCOUNTER 2023-03-09 20:15 | Outpatient (CLI) | payer MEDICARE, SELFPAY | END 2023-03-09 20:16 | disposition home or self-care (01) | LOC: AMB 05-26 09:32 | PROVIDERS: PCP Family Medicine; Visit Provider Emergency Medicine Emergency Medical Services | DX: I21.4 Non-ST elevation (NSTEMI) myocardial infarction (principal) | CPT/HCPCS: A0425; A0427 ==